=== PATIENT | female | born 1975 | race Hispanic/Latino ===

== ENCOUNTER 2020-12-07 17:31 | Observation (INO) ==
[2020-12-07] MEDS ORDERED: NORMAL SALINE 1,000 ML IV ONE (17:52)
[2020-12-07] MEDS ORDERED: PANTOPRAZOLE SODIUM 40 MG/100 ML PIGGYBACK IV ONE (17:54)
--- NOTE | 2020-12-07 18:15 | ERNOTE ---
Medical Problem HPI - Narrative Date of Service: 12/07/20 - General Chief Complaint: General Assessment Time Seen by Provider: 12/07/20 17:54 Source: patient Exam Limitations: no limitations - Immun/Allergies/Home Medications Immunizations: IMMUNIZATION HX Immunizations Up to Date Yes History of Influenza Vaccine No Hx Pneumococcal Vaccination No Allergies/Adverse Reactions: Allergies No Known Allergies Allergy (Verified 12/07/20 17:43) Home Medications: HOME MEDICATIONS medroxyprogesterone 150 mg/mL intramuscular suspension 150 mg IM [id number] 05/25/20 [Last Taken Unknown] - History of Present History Narrative: Ilana presents to the ED from 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 She went in apparently for control and related that she had been progressively SOB and feeling weak and dizzy, HGB checked and noted to be severely anemia. She denies vaginal or rectal bleeding. Did have heavy vaginal bleeding a few months ago. No CP or SOB. These have been gradually progressive Sx. Timing: constant, getting worse Severity: moderate Modifying Factors - (Improves): Present: other - nothing Modifying Factors - (Worsens): Present: other - activity Review of Systems - Review of Systems Constitutional: Absent: fever EYE: Present: no symptoms reported ENT: Absent: sore throat Respiratory: Present: other - feels SOB with exertion Cardiology: Absent: chest pain Gastrointestinal/Abdominal: Present: other - no blood in the stool. Absent: vom iting, abdominal pain Genitourinary: Present: no symptoms reported Musculoskeletal: Absent: neck pain Skin: Present: no symptoms reported Endocrine: Present: See HPI All Other Systems: All systems neg except as marked Medical History (Last Reviewed 12/07/20 @ 18:43 by Nael Camarena MD) Abnormal Pap smear of cervix Onset Date: ~2006 Bacterial vaginitis Onset Date: ~2013 Depression Gestational diabetes Hematuria Onset Date: ~2013 Trichomoniasis Onset Date: 02/10/20 Surgical History: Surgical History (Last Reviewed 12/07/20 @ 18:43 by Nael Camarena MD) History of colposcopy Onset Date: ~2006 History of lumbar fusion Onset Date: ~2016 Family History: Family History (Last Reviewed 12/07/20 @ 18:43 by Nael Camarena MD) Grandmother Diabetes maternal Grandmother Diabetes paternal Grandfather , maternal Cancer Son Diabetes Other No pertinent family history Social History: (Last Reviewed 12/07/20 @ 18:44 by Nael Camarena MD) Social History: Marital status: Single current occupational status: employed 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 Highest level of school completed/degree received: high school graduate Service: No Tobacco: Smoking Status: Former smoker Alcohol: alcohol intake: current Substance Use: substance use type: does not use Dietary Habits: caffeine: Yes Physical Exam - Physical Exam General Appearance: Present: alert, no apparent distress Head Exam: Present: normal inspection, no evidence of injury Eye Exam: Normal inspection: bilateral, PERRL: bilateral Ears, Nose, Throat: Present: normal ENT inspection Neck: Present: normal inspection Respiratory: Present: no respiratory distress, normal breath sounds, no accessory muscle use, lungs clear Cardiovascular/Chest: Present: normal peripheral pulses, tachycardia Gastrointestinal/Abdominal: Present: normal bowel sounds, nontender, nondistended, soft Back Exam: Absent: CVA tenderness (R), CVA tenderness (L) Extremity Exam: Present: normal inspection, normal range of motion Neurological Exam: Present: alert, no motor/sensory deficits Skin Exam: Present: warm/dry, pallor Progress - Results and Orders Patient's Lab Results:: I have reviewed the patient's lab results. - Vital Signs Patient's Vital Signs:: I have reviewed the patient's vital signs. Vital Signs: Vital Signs 12/07/20 17:39 Temperature 37.6 C Pulse Rate 120 H Respiratory Rate 16 Blood Pressure 160/87 H O2 Sat by Pulse Oximetry 100 - Progress/Reassessment Chief Complaint: General Assessment Progress Note-Subjective: 12/07/20 18:44 I reviewed prior labs and ordered additional labs. 1st unit PRBS ordered. D/W Dr Christianson who will admit to the hospital. Patient is agreeable. Departure Clinical Impression: Symptomatic anemia - Departure Disposition: Still a patient Condition: Stable
[2020-12-07 18:25] LABS: Bilirubin Direct 0.8 mg/dL (0.0-0.3); CRP 0.5 mg/dL (0.0-0.9)
[2020-12-07 18:28] LABS: Prothrombin Time (Patient) 14.8 Seconds (9.1-10.7)
[2020-12-07 18:29] LABS: INR 1.45 INR (0.92-1.08); Partial Thrombolplastin Time 28.6 Seconds (24-32)
[2020-12-07] MEDS ORDERED: ACETAMINOPHEN 325 MG TABLET PO PRN (19:26)
[2020-12-07] MEDS ORDERED: FUROSEMIDE 10 MG/ML VIAL IV ONE (19:31)
[2020-12-07] MEDS ORDERED: diphenhydrAMINE HCL 50 MG/ML VIAL IV ONE (19:31)
[2020-12-07] MEDS ORDERED: POTASSIUM CHLORIDE 20 MEQ TABLET.SA PO ONE (20:22)
--- NOTE | 2020-12-07 20:32 | HP ---
Chief Complaint - Chief Complaint Date of Service: 12/07/20 Time of Service: 20:24 Chief Complaint: I have had fatigue and mild shortness of breath for several weeks due to anemia History of Present Illness: 45-year-old female with no significant past medical history was evaluated in the ER after the patient was sent by her CLASSROOM COORDINATOR for evaluation for severe anemia. Patient was to the doctor's office earlier during the day to discuss control and to undergo lab testing, she was discovered to have a hemoglobin of 5. Upon questioning the patient admitted that several months ago she had 2 consecutive heavy menstrual periods that were ongoing for several days. She saw an CLASSROOM COORDINATOR who told her that they would just observe the symptom for the time being. She became progressively fatigued and shortness of breath with mild exertion. Once the doctor discovered the anemia the patient was referred to the ER for evaluation and blood transfusion. 4 units of PRBCs have been ordered for transfusion after the patient agreed to treatment. She denies any recent illness or changes in her health aside from the previously stated. Of importance on labs in the ER the patient was found to have pancytopenia with decreased RBCs, decreased WBCs, and decreased platelets, she denies any hematologic history or any childhood blood disorders. Peripheral smear and other labs have been ordered for further work-up, but the patient was also found to have elevated bilirubin indicating possible liver disease. Upon questioning she admits to excessive drinking of alcohol and says she has multiple alcoholic beverages per day which might explain this finding. Medical History (Last Reviewed 12/07/20 @ 18:43 by Nael Camarena MD) Abnormal Pap smear of cervix Onset Date: ~2006 Bacterial vaginitis Onset Date: ~2013 Depression Gestational diabetes Hematuria Onset Date: ~2013 Trichomoniasis Onset Date: 02/10/20 Surgical History: Surgical History (Last Reviewed 12/07/20 @ 18:43 by Nael Camarena MD) History of colposcopy Onset Date: ~2006 History of lumbar fusion Onset Date: ~2016 Family History: Family History (Last Reviewed 12/07/20 @ 18:43 by Nael Camarena MD) Grandmother Diabetes maternal Grandmother Diabetes paternal Grandfather , maternal Cancer Son Diabetes Other No pertinent family history Social History: (Last Reviewed 12/07/20 @ 18:44 by Nael Camarena MD) Social History: Marital status: Single current occupational status: employed 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 Highest level of school completed/degree received: high school graduate Service: No Tobacco: Smoking Status: Former smoker Alcohol: alcohol intake: current Substance Use: substance use type: does not use Dietary Habits: caffeine: Yes Peds Patient Hx - Developmental: No Pertinent Hx Peds Patient Hx - Medical: No Pertinent Hx Peds Patient Hx - Cardiac/Respiratory: No Pertinent Hx Peds Patient Hx - Surgical: No Surgical History Patient History - Cancer: No Hx of Cancer Review Of Systems (GEN) - Review of Systems Generalized/Overall Review: Present: Fatigue EENTM: Present: No Symptoms Reported Respiratory: Present: Shortness of Breath Cardiac: Present: No Symptoms Reported Abdominal: Present: No Symptoms Reported Genitourinary: Present: No Symptoms Reported Musculoskeletal: Present: No Symptoms Reported Neurological: Present: No Symptoms Reported Skin: Present: No Symptoms Reported Endocrine: Present: No Symptoms Reported Immunizations: IMMUNIZATION HX Immunizations Up to Date Yes History of Influenza Vaccine No Hx Pneumococcal Vaccination No Allergies/Adverse Reactions: Allergies Allergy/AdvReac Type Severity Reaction Status Date / Time No Known Allergies Allergy Verified 12/07/20 17:43 Home Medications: HOME MEDICATIONS medroxyprogesterone 150 mg/mL intramuscular suspension 150 mg IM [id number] 05/25/20 [Last Taken Unknown] Exam - Exam Vital Signs: Vital Signs - Last Taken Temp 37.2 C 12/07/20 20:03 Pulse 112 H 12/07/20 20:03 Resp 20 12/07/20 20:03 BP 123/73 12/07/20 20:03 Pulse Ox 100 12/07/20 20:03 Constitutional: Present: Alert, Oriented x3, Cooperative, Well developed, Well nourished, No distress ENT Exam: Present: normal ENT inspection, hearing grossly normal Eye Exam: bilateral eye: normal inspection, PERRL, EOMI Neck: Present: non-tender, full range of motion, supple, normal inspection, tr achea midline Back Exam: Present: normal inspection, no CVA tenderness, no vertebral tenderness Breasts: Present: Exam deferred, Nontender Respiratory: Present: chest non-tender, lungs clear, normal breath sounds, no respiratory distress, no accessory muscle use Cardiovascular/Chest: Present: normal peripheral pulses, regular rate, rhythm, no chest tenderness, no edema, no gallop, no JVD, no murmur, no rub Peripheral Pulses: dorsalis-pedis (R): 3+, dorsalis-pedis (L): 3+ Abdomen: Present: Normal bowel sounds, soft, nontender, nondistended, no rebound tenderness, no hepatospenomegaly, no masses, obese /Rectal: Present: Exam deferred Extremity: Present: normal range of motion, non-tender, normal inspection, no pedal edema, no calf tenderness, normal capillary refill, pelvis stable Skin Exam: Present: normal color, warm/dry, no cyanosis Lymphatic: Present: no adenopathy Neurologic: Present: surveying crew stake runner II-XII nml as tested, normal cerebellar test, no motor/sensory deficits, alert, normal mood/affect, oriented x 3 Appearance: Present: appropriate appearance, appropriate insight, neat, no memor y impairment Eye contact: Present: cooperative, good eye contact, normal speech Thoughts: Present: normal thought pattern, no apparent hallucination Diagnostic Studies: Abnormal Lab Results 12/07/20 12/07/20 12/07/20 Range/Units 18:08 18:08 18:08 Percent Retic 2.3 H (0.4-1.8) % Immature Retic Fraction 22.5 H (3.0-15.9) % Retic Hgb Content 15.6 L (29-35) pg PT 14.8 H (9.1-10.7) Seconds INR (Anticoag Therapy) 1.45 H (0.92-1.08) INR Direct Bilirubin (0.0-0.3) mg/dL Crossmatch See Detail 12/07/20 Range/Units 18:08 Percent Retic (0.4-1.8) % Immature Retic Fraction (3.0-15.9) % Retic Hgb Content (29-35) pg PT (9.1-10.7) Seconds INR (Anticoag Therapy) (0.92-1.08) INR Direct Bilirubin 0.8 H (0.0-0.3) mg/dL Crossmatch Laboratory Results Peripheral Blood Smear Smear sent to path. 12/07/20 18:08 Absolute Retic 0.0748 12/07/20 18:08 Percent Retic 2.3 % (0.4-1.8) H 12/07/20 18:08 Immature Retic Fraction 22.5 % (3.0-15.9) H 12/07/20 18:08 Retic Hgb Content 15.6 pg (29-35) L 12/07/20 18:08 PT 14.8 Seconds (9.1-10.7) H 12/07/20 18:08 INR (Anticoag Therapy) 1.45 INR (0.92-1.08) H 12/07/20 18:08 PTT ([place]) 28.6 Seconds (24-32) 12/07/20 18:08 Direct Bilirubin 0.8 mg/dL (0.0-0.3) H 12/07/20 18:08 Lactate Dehydrogenase 167 U/L (81-234) 12/07/20 18:08 C-Reactive Prot, Quant 0.5 mg/dL (0.0-0.9) 12/07/20 18:08 Stool Occult Blood Negative 12/07/20 19:59 SARS-CoV-2 (PCR) Not detected (NotDetected) 12/07/20 18:21 Blood Type O Positive 12/07/20 18:08 Antibody Screen Negative 12/07/20 18:08 Crossmatch See Detail 12/07/20 18:08 Assessment/Plan - Narrative Narrative: Patient was evaluated medical chart was reviewed and decision to admit for anemia secondary to blood loss was made. Patient will be transfused 4 units of PRBCs with follow-up labs to reevaluate hemoglobin levels, will also follow-up with work-up for the pancytopenia. - Assessment/Plan (1) Alcohol abuse Problem: Acute (2) Symptomatic anemia Problem: Acute (3) Pancytopenia Problem: Acute (4) H/O menorrhagia Problem: Acute (5) Anemia requiring transfusions Problem: Acute
[2020-12-08] MEDS ORDERED: FUROSEMIDE 10 MG/ML VIAL IV ONE (00:30)
[2020-12-08 10:37] LABS: Hematocrit 31.4 % (37.0-47.0); Hemoglobin 9.1 gm/dL (12.5-16.0)
[2020-12-08 10:50] LABS: Albumin * 3.4 gm/dl (3.4-5.0); Anion Gap 13.4 mmol/L (6.8-13.8); BUN/Creatinine Ratio 8.6 (9.0-21.6); Bilirubin, Total 2.2 mg/dL (0.0-1.1); Ca. Corrected For Albumin 8.3 mg/dL (8.4-10.2); Calcium * 8.1 mg/dL (7.9-10.9); Carbon Dioxide 23.9 mmol/L (24-32.6); Potassium 3.3 mmol/L (3.4-4.6); Total Protein 6.5 gm/dL (6.2-8.2)
[2020-12-08] MEDS ORDERED: POTASSIUM CHLORIDE 20 MEQ TABLET.SA PO SCH (11:00)
--- NOTE | 2020-12-08 11:22 | DS ---
(1) Alcohol abuse Problem: Acute (2) Symptomatic anemia Problem: Acute (3) Pancytopenia Problem: Acute (4) H/O menorrhagia Problem: Acute (5) Anemia requiring transfusions Problem: Acute Date of Discharge:: 12/08/20 Hospital Course: 45-year-old female was admitted for symptomatic anemia and was treated with transfusion of 4 units of PRBC. The patient entered the hospital with a hemoglobin of 5 and after a successful transfusion it is now above 9. She tolerated the transfusion without any issues, there were no adverse reactions. This morning at bedside she was instructed to establish with a new PCP but was informed that I will follow up on her blood smear which has not yet returned to look further into the cause of her pancytopenia. Recommendation to also establish with a soaking pit operator to look for the cause and possibly treat the condition was also discussed. Patient was also provided with a prescription for oral iron supplements for ongoing treatment of the anemia. Procedures Performed: none Results and Findings: Lab Pending Results 12/07/20 18:08: Blood Type O Positive, Antibody Screen Negative, Crossmatch See Detail 12/07/20 18:08: Peripheral Blood Smear Smear sent to path. 12/07/20 18:08: Absolute Retic 0.0748, Percent Retic 2.3 H, Immature Retic Fraction 22.5 H, Retic Hgb Content 15.6 L 12/07/20 18:08: PT 14.8 H, INR (Anticoag Therapy) 1.45 H, PTT ([place]) 28.6 12/07/20 18:08: Direct Bilirubin 0.8 H, Lactate Dehydrogenase 167, C-Reactive Prot, Quant 0.5 12/07/20 18:21: SARS-CoV-2 (PCR) Not detected 12/07/20 19:59: Stool Occult Blood Negative 12/08/20 10:27: Hgb 9.1 L, Hct 31.4 L 12/08/20 10:27: Sodium 138, Plasma Sodium 138, Potassium 3.3 L, Chloride 104, Carbon Dioxide 23.9 L, Anion Gap 13.4, BUN 5, Creatinine 0.58, Est GFR (Non-Af Amer) 121, BUN/Creatinine Ratio 8.6 L, Random Glucose 99, Calcium 8.1, Calcium Adj for Albumin 8.3 L, Total Bilirubin 2.2 H, AST 22, ALT 20, Alkaline Phosphatase 107, Total Protein 6.5, Albumin 3.4 Discharge Location: Home Disposition: Home self-care Condition: Stable Discharge Activity: Activity as tolerated Discharge Diet: General/regular food Problem Oriented Discharge Instructions to Patient/Family: Anemia Additional Patient Instructions (free text): Follow up appointment with Dr Christianson on December 21 @ 11:15 am for a one time follow up then establish with a PCP in [place]. Prescriptions (Any new or edited meds): Ferrous Sulfate 325 mg PO TID #90 tab Transmission Status: Pending to [id number] Complete Home Medications List: Complete Home Medication List: medroxyprogesterone 150 mg/mL intramuscular suspension 150 mg IM [id number] 05/25/20 Ferrous Sulfate 325 mg PO TID #90 tab 12/08/20 Forms: Patient Portal Registration
[2020-12-08 13:26] VITALS: BP 130/81
== END 2020-12-08 13:35 | disposition home or self-care (01) ==
LOC: MS 17:31 → ER 17:31 → MS 20:15
PROVIDERS: ADMIT Family Medicine; ATTEND Family Medicine